=== PATIENT | female | born 1955 | race Caucasian/White ===

== ENCOUNTER 2020-06-15 10:13 | Emergency (ER) | payer MEDICARE, OTHER, SELFPAY ==
--- NOTE | 2020-06-15 10:37 | XR_ITS ---
WS: [id number] Exam: XR chest 1V portable [id number] Date/Time of Exam: 06/15/2020 10:37 AM Reason For Exam: syncope No priors. The lungs are clear and fully inflated. Normal cardiomediastinal structures. No pleural effusions. Ol d posterior left sixth rib fracture noted. Monitoring leads superimpose the chest. XR/XR chest 1V portable [id number] IMPRESSION: 1. No acute cardiopulmonary finding.
--- NOTE | 2020-06-15 10:38 | ECG_ITS ---
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
[2020-06-15 10:56] VITALS: BP 138/77; PULSE 76; RESP 16; TEMP 37.1; O2SAT 99; BMI 31.1
--- NOTE | 2020-06-15 10:57 | ED_ITS ---
Documented by User: JUAN DAVID Bell 06/15/20 12:30 HPI - Chest Pain General: Chief Complaint: Chest Pain Stated Complaint: Not Feeling Well. High Blood Pressure Time Seen by Provider: 06/15/20 10:57 History of Present Illness: HPI narrative: 64-year-old female patient presents to the emergency department with 7-day history of not feeling right. Suffers from scleroderma, Raynaud's, under the care of Dr. Zhao, supervisor [employer]. Recent medication change, cyclophosphamide, states made her feel funny and stopped the medication 7 days ago - states continued heart palpitations, anxiety - reports HR monitoring at home with HR 44-76; BP SBP 110-163; states BP not normally that high. She reports PCP, Dr Carter, [place], [place], suggested antidepressants, she reports did not wish to start medication until heart palpitations symptom is investigated. She denies CP/SOB, n/v/d. Associated symptoms: Reports palpitations; Deny abdominal pain, diaphoresis, dyspnea, fever(s), nausea or vomiting Risk Factors: Coronary artery disease risk factors: hypertension Thoracic aortic dissection risk factors: connective tissue disease (arotitis) (Scleroderma, Raynaud's disease) Review of Systems General: Reports: 10 or more systems reviewed and unremarkable except in HPI and below Const: Denies: fever(s), chills or diaphoresis Eyes: Denies: blurry vision or eye redness ENMT: Denies: throat pain, dental pain or disequilibrium Card: Reports: palpitations; Denies: chest pain, irregular heart rhythm, swelling of feet/ankles or dyspnea on exertion Resp: Denies: dyspnea, productive cough, non-productive cough or wheezing GI: Denies: abdominal pain, nausea or vomiting : Denies: difficulty voiding or dysuria Musc: Denies: back pain Skin/Breast: Denies: rash or pruritus Neuro: Denies: headache(s), weakness in extremities or behavioral changes Psych: Reports: anxiety and depression; Denies: visual hallucinations or auditory hallucinations Remberto/Lymph: Denies: easy bruising Physical Exam Const: COMMON NORMALS: no acute distress, patient oriented x3, healthy appearing and alert GENERAL APPEARANCE: cooperative, comfortable and well hydrated HENMT: COMMON NORMALS: normocephalic, Normal external nose present and moist oral mucous membranes HEAD & SCALP: normocephalic NOSE: Normal external nose present Eye: COMMON NORMALS: Equal, round and reactive pupils present and EOMs intact bilaterally GENERAL EYE: appearance normal, both eyes and all related structures PUPIL: Yes Equal, round and reactive pupils present Neck/C-Spine: COMMON NORMALS: full ROM and no lymphadenopathy GENERAL: Yes normal visual inspection and Yes trachea midline CERVICAL SPINE: Yes cervical ROM normal Lymph: LYMPHATIC: no lymphadenopathy noted Chest: COMMONS NORMALS: normal inspection of the chest Resp: COMMON NORMALS: normal respiratory effort and clear to auscultation bilaterally AUSCULTATION: clear to auscultation bilaterally Cardio: COMMON NORMALS: regular rhythm, S1 normal heart sound present, S2 normal heart sound present and Peripheral pulses 2+ throughout RHYTHM: regular rhythm HEART SOUNDS: S1 normal heart sound present and S2 normal heart sound present PERIPHERAL PULSES: Peripheral pulses 2+ throughout GI: COMMON NORMALS: Soft to palpation and non-tender INSPECTION: Yes normal to inspection AUSCULTATION: Yes normoactive bowel sounds PALPATION: Yes Soft to palpation : COMMON NORMALS: Yes no CVA tenderness BLADDER/KIDNEY EXAM: Yes no CVA tenderness Back/Pelvis: COMMON NORMALS: no CVA tenderness and thoracic and lumbar spine normal to inspection Extremity: COMMON NORMALS: normal to inspection and capillary refill normal Neuro: COMMON NORMALS: patient oriented x3 and no focal motor deficits SENSORIUM/ORIENTATION: Yes alert Psych: COMMON NORMALS: mental status grossly normal, Normal thought process present and cooperative ACTIVITY/MOTOR BEHAVIOR: Yes appropriate eye contact THOUGHT PROCESS: Normal thought process present Skin: COMMON NORMALS: no rashes or lesions noted and turgor normal GENERAL SKIN EXAM: no rashes or lesions noted and turgor normal Course ED course: 64-year-old female patient presents to the emergency department with not feeling well. Reports palpitations, questions new rheumatological medication as cause of palpitations and fatigue. Bigeminy noted to primary EKG reading, rate appeared is 44, bigeminy resolved with rate 70s, she denies chest pain, nausea vomiting. Transfer of care to Dr. Woodward, ED physician. Consultations: Consultation #1: Dr Michelle, cardiology, initial EKG reviewed, PVCs present/bigeminy with resolution, advised no acute process, advised magnesium with Chem-7 to rule out abnormal electrolytes. Time: 11:00 Vital Signs: Vital signs: Vital Signs Temperature 98.4 F 06/15/20 15:21 Pulse Rate 67 06/15/20 15:21 Respiratory Rate 18 06/15/20 15:21 Blood Pressure 121/68 06/15/20 15:21 Pulse Oximetry 96 06/15/20 15:21 MDM - Chest Pain Lab Data: Labs: Lab Results 06/15/20 06/15/20 06/15/20 Range/Units 10:40 11:10 11:10 WBC 4.7 (4.0-10.0) 10^3/ uL RBC 4.06 L (4.1-5.3) 10^6/u L Hgb 12.7 (11.5-15.3) g/dL Hct 40.7 (37.0-47.0) % MCV 100.2 H (81-99) fL MCH 31.3 (28.0-34.0) pg MCHC 31.2 (30.0-36.0) g/dL RDW 14.1 (12.1-15.1) % Plt Count 236 (130-400) 10^3/c mm MPV 10.3 (7.4-10.4) fL Neut % (Auto) 78.1 % Lymph % (Auto) 13.1 % Campbell % (Auto) 7.2 % Eos % (Auto) 0.2 % Baso % (Auto) 0.8 % Neut # (Auto) 3.69 (1.8-7.7) 10^3/u L Lymph # (Auto) 0.6 L (0.8-4.8) 10^3/u L Campbell # (Auto) 0.3 (0.2-0.9) 10^3/u L Eos # (Auto) 0.0 (0.0-0.8) 10^3/u L Baso # (Auto) 0.0 (0.0-0.1) 10^3/u L Nucleated RBC % (a uto) 0 % Nucleated RBCs # 0.0 /100WBC ESR 43 H (0-15) mm/hr D-Dimer (0-0.59) ug/mIFE U Sodium (136-145) mmol/L Potassium (3.5-5.1) mmol/L Chloride (98-107) mmol/L Carbon Dioxide (22-29) mmol/L Anion Gap (5-19) BUN (8-23) mg/dL Creatinine (0.5-0.9) mg/dL GFR Calculation (90-130) mL/min Glucose (65-115) mg/dL Calculated Osmolal ity (285-295) mOsm/k g Calcium (8.5-10.5) mg/dL Magnesium (1.7-2.3) mg/dL Total Bilirubin (0.15-1.2) mg/dL AST (0-32) U/L ALT (0-33) U/L Alkaline Phosphata se (35-105) IU/L Troponin T Baselin e (0-10) ng/L Troponin T 120 Min [place] (0-10) ng/L Delta Troponin T (0-10) ABS# C-Reactive Protein (0.0-4.9) mg/L Total Protein (6.6-8.7) g/dL Albumin (3.5-5.2) g/dL Globulin (1.3-4.6) g/dL Urine Color Straw (Yellow) Urine Appearance Clear (CLEAR) Urine pH 7 (5-7) Ur Specific Gravit y 1.005 (1.005-1.030) Urine Protein Neg (Negative) Urine Glucose (UA) Norm (Normal) Urine Ketones Negative (Negative) Urine Blood Neg (Negative) Urine Nitrate Negative (Negative) Urine Bilirubin Neg (Negative) Urine Urobilinogen Norm (Negative) mg/dL Ur Leukocyte Jing ase 1+ H (Negative) Urine RBC 0-4 H (0-2) /hpf Urine WBC 15-25 H (0-5) /hpf Ur Squamous Epith Cells 10-15 H (0-5) /hpf Amorphous Sediment Not Reportable Urine Bacteria 1+ H (NONE) /hpf 06/15/20 06/15/20 06/15/20 Range/Units 11:10 11:10 11:10 WBC (4.0-10.0) 10^3/ uL RBC (4.1-5.3) 10^6/u L Hgb (11.5-15.3) g/dL Hct (37.0-47.0) % MCV (81-99) fL MCH (28.0-34.0) pg MCHC (30.0-36.0) g/dL RDW (12.1-15.1) % Plt Count (130-400) 10^3/c mm MPV (7.4-10.4) fL Neut % (Auto) % Lymph % (Auto) % Campbell % (Auto) % Eos % (Auto) % Baso % (Auto) % Neut # (Auto) (1.8-7.7) 10^3/u L Lymph # (Auto) (0.8-4.8) 10^3/u L Campbell # (Auto) (0.2-0.9) 10^3/u L Eos # (Auto) (0.0-0.8) 10^3/u L Baso # (Auto) (0.0-0.1) 10^3/u L Nucleated RBC % (a uto) % Nucleated RBCs # /100WBC ESR (0-15) mm/hr D-Dimer 0.57 (0-0.59) ug/mIFE U Sodium 139 (136-145) mmol/L Potassium 4.2 (3.5-5.1) mmol/L Chloride 102 (98-107) mmol/L Carbon Dioxide 29 (22-29) mmol/L Anion Gap 12.2 (5-19) BUN 11 (8-23) mg/dL Creatinine 0.6 (0.5-0.9) mg/dL GFR Calculation 100.3 (90-130) mL/min Glucose 104 (65-115) mg/dL Calculated Osmolal ity 288 (285-295) mOsm/k g Calcium 9.5 (8.5-10.5) mg/dL Magnesium 2.1 (1.7-2.3) mg/dL Total Bilirubin 0.3 (0.15-1.2) mg/dL AST 23 (0-32) U/L ALT 14 (0-33) U/L Alkaline Phosphata se 68 (35-105) IU/L Troponin T Baselin e 9 (0-10) ng/L Troponin T 120 Min [place] (0-10) ng/L Delta Troponin T (0-10) ABS# C-Reactive Protein 1.5 (0.0-4.9) mg/L Total Protein 7.3 (6.6-8.7) g/dL Albumin 4.3 (3.5-5.2) g/dL Globulin 3.0 (1.3-4.6) g/dL Urine Color (Yellow) Urine Appearance (CLEAR) Urine pH (5-7) Ur Specific Gravit y (1.005-1.030) Urine Protein (Negative) Urine Glucose (UA) (Normal) Urine Ketones (Negative) Urine Blood (Negative) Urine Nitrate (Negative) Urine Bilirubin (Negative) Urine Urobilinogen (Negative) mg/dL Ur Leukocyte Jing ase (Negative) Urine RBC (0-2) /hpf Urine WBC (0-5) /hpf Ur Squamous Epith Cells (0-5) /hpf Amorphous Sediment Urine Bacteria (NONE) /hpf 06/15/20 Range/Units 13:04 WBC (4.0-10.0) 10^3/ uL RBC (4.1-5.3) 10^6/u L Hgb (11.5-15.3) g/dL Hct (37.0-47.0) % MCV (81-99) fL MCH (28.0-34.0) pg MCHC (30.0-36.0) g/dL RDW (12.1-15.1) % Plt Count (130-400) 10^3/c mm MPV (7.4-10.4) fL Neut % (Auto) % Lymph % (Auto) % Campbell % (Auto) % Eos % (Auto) % Baso % (Auto) % Neut # (Auto) (1.8-7.7) 10^3/u L Lymph # (Auto) (0.8-4.8) 10^3/u L Campbell # (Auto) (0.2-0.9) 10^3/u L Eos # (Auto) (0.0-0.8) 10^3/u L Baso # (Auto) (0.0-0.1) 10^3/u L Nucleated RBC % (a uto) % Nucleated RBCs # /100WBC ESR (0-15) mm/hr D-Dimer (0-0.59) ug/mIFE U Sodium (136-145) mmol/L Potassium (3.5-5.1) mmol/L Chloride (98-107) mmol/L Carbon Dioxide (22-29) mmol/L Anion Gap (5-19) BUN (8-23) mg/dL Creatinine (0.5-0.9) mg/dL GFR Calculation (90-130) mL/min Glucose (65-115) mg/dL Calculated Osmolal ity (285-295) mOsm/k g Calcium (8.5-10.5) mg/dL Magnesium (1.7-2.3) mg/dL Total Bilirubin (0.15-1.2) mg/dL AST (0-32) U/L ALT (0-33) U/L Alkaline Phosphata se (35-105) IU/L Troponin T Baselin e (0-10) ng/L Troponin T 120 Min [place] 8.84 (0-10) ng/L Delta Troponin T -0.16 L (0-10) ABS# C-Reactive Protein (0.0-4.9) mg/L Total Protein (6.6-8.7) g/dL Albumin (3.5-5.2) g/dL Globulin (1.3-4.6) g/dL Urine Color (Yellow) Urine Appearance (CLEAR) Urine pH (5-7) Ur Specific Gravit y (1.005-1.030) Urine Protein (Negative) Urine Glucose (UA) (Normal) Urine Ketones (Negative) Urine Blood (Negative) Urine Nitrate (Negative) Urine Bilirubin (Negative) Urine Urobilinogen (Negative) mg/dL Ur Leukocyte Jing ase (Negative) Urine RBC (0-2) /hpf Urine WBC (0-5) /hpf Ur Squamous Epith Cells (0-5) /hpf Amorphous Sediment Urine Bacteria (NONE) /hpf EKG Data^: EKG 1: EKG interpretation date: 06/15/20 EKG interpretation time: 10:51 Prior EKG tracings: not available for review Computer generated interpretation: Sinus rhythm with occasional PVCs, left atrial enlargement, borderline ECG Discharge Plan Discharge Patient Disposition: Home Clinical Impression: Heart palpitations Condition: Stable Prescriptions: Continued amlodipine 5 mg tablet 5 mg PO BID RF: 0 famotidine 20 mg Tablet 20 mg PO BID RF: 0 aspirin 81 mg Tablet,Chewable 81 mg PO DAILY RF: 0 bupropion HCl 150 mg tablet extended release 24 hr 150 mg PO DAILY RF: 0 cyclophosphamide 25 mg capsule 25 mg PO DAILY RF: 0 Discharge Orders: Discharge Order (Routine); Ordered 06/15/20 Ordered By: Halley Woodward Referrals: [facility] [Other] Discharge Diet: Usual diet Discharge Activity: Increase activity as tolerated Patient Instructions: Palpitations (ED) Activity Restrictions/Additional Instructions: Return for any new or worsening symptoms. Follow-up with your primary care provider within 3 days. You will be contacted to set up the Holter or event monitor so that we can monitor your heart rate to see if you need cardiology evaluation. Discharge Date/Time: 06/15/20 15:23 Sign Out Sign Out Data: Patient Sign Out occurred on 06/15/20 at 13:07. Patient's care was discussed, and care was transferred from to Halley Woodward MD, [facility] [place]. Coding Level of Care Code ED Picker/Puller for Chg Fwd Exam Comprehensive Documented by User: Halley Woodward MD, [facility] [place] 06/15/20 19:39 HPI - Chest Pain General: Chief Complaint: Chest Pain Stated Complaint: Not Feeling Well. High Blood Pressure Time Seen by Provider: 06/15/20 10:57 Course Reevaluation(s): Reevaluation #1: Discussed her lab and imaging findings with her. Negative for acute findings. I explained that her symptoms are most likely secondary to cyclophosphamide which she thought the same thing. Because of the abnormal EKG here she is advised to get a Holter or event monitor and she voiced understanding and is in agreement with the plan. Time: 14:41 Vital Signs: Vital signs: Vital Signs Temperature 98.4 F 06/15/20 15:21 Pulse Rate 67 06/15/20 15:21 Respiratory Rate 18 06/15/20 15:21 Blood Pressure 121/68 06/15/20 15:21 Pulse Oximetry 96 06/15/20 15:21 MDM - Chest Pain MDM Narrative: Medical decision making narrative: For the history and physical and examination see the notes by the midlevel provider. In summary this is a 64-year-old female patient with a history of scleroderma and Raynaud's who was started on cyclophosphamide and presents with complaints of palpitations and generalized weakness. 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 She will get a Holter/event and will f/u with her pcp. Medical Records: Attestation: I reviewed the patient's medical records. Lab Data: Attestation: I reviewed the patient's lab results. Labs: Lab Results 06/15/20 06/15/20 06/15/20 Range/Units 10:40 11:10 11:10 WBC 4.7 (4.0-10.0) 10^3/ uL RBC 4.06 L (4.1-5.3) 10^6/u L Hgb 12.7 (11.5-15.3) g/dL Hct 40.7 (37.0-47.0) % MCV 100.2 H (81-99) fL MCH 31.3 (28.0-34.0) pg MCHC 31.2 (30.0-36.0) g/dL RDW 14.1 (12.1-15.1) % Plt Count 236 (130-400) 10^3/c mm MPV 10.3 (7.4-10.4) fL Neut % (Auto) 78.1 % Lymph % (Auto) 13.1 % Campbell % (Auto) 7.2 % Eos % (Auto) 0.2 % Baso % (Auto) 0.8 % Neut # (Auto) 3.69 (1.8-7.7) 10^3/u L Lymph # (Auto) 0.6 L (0.8-4.8) 10^3/u L Campbell # (Auto) 0.3 (0.2-0.9) 10^3/u L Eos # (Auto) 0.0 (0.0-0.8) 10^3/u L Baso # (Auto) 0.0 (0.0-0.1) 10^3/u L Nucleated RBC % (a uto) 0 % Nucleated RBCs # 0.0 /100WBC ESR 43 H (0-15) mm/hr D-Dimer (0-0.59) ug/mIFE U Sodium (136-145) mmol/L Potassium (3.5-5.1) mmol/L Chloride (98-107) mmol/L Carbon Dioxide (22-29) mmol/L Anion Gap (5-19) BUN (8-23) mg/dL Creatinine (0.5-0.9) mg/dL GFR Calculation (90-130) mL/min Glucose (65-115) mg/dL Calculated Osmolal ity (285-295) mOsm/k g Calcium (8.5-10.5) mg/dL Magnesium (1.7-2.3) mg/dL Total Bilirubin (0.15-1.2) mg/dL AST (0-32) U/L ALT (0-33) U/L Alkaline Phosphata se (35-105) IU/L Troponin T Baselin e (0-10) ng/L Troponin T 120 Min [place] (0-10) ng/L Delta Troponin T (0-10) ABS# C-Reactive Protein (0.0-4.9) mg/L Total Protein (6.6-8.7) g/dL Albumin (3.5-5.2) g/dL Globulin (1.3-4.6) g/dL Urine Color Straw (Yellow) Urine Appearance Clear (CLEAR) Urine pH 7 (5-7) Ur Specific Gravit y 1.005 (1.005-1.030) Urine Protein Neg (Negative) Urine Glucose (UA) Norm (Normal) Urine Ketones Negative (Negative) Urine Blood Neg (Negative) Urine Nitrate Negative (Negative) Urine Bilirubin Neg (Negative) Urine Urobilinogen Norm (Negative) mg/dL Ur Leukocyte Jing ase 1+ H (Negative) Urine RBC 0-4 H (0-2) /hpf Urine WBC 15-25 H (0-5) /hpf Ur Squamous Epith Cells 10-15 H (0-5) /hpf Amorphous Sediment Not Reportable Urine Bacteria 1+ H (NONE) /hpf 06/15/20 06/15/20 06/15/20 Range/Units 11:10 11:10 11:10 WBC (4.0-10.0) 10^3/ uL RBC (4.1-5.3) 10^6/u L Hgb (11.5-15.3) g/dL Hct (37.0-47.0) % MCV (81-99) fL MCH (28.0-34.0) pg MCHC (30.0-36.0) g/dL RDW (12.1-15.1) % Plt Count (130-400) 10^3/c mm MPV (7.4-10.4) fL Neut % (Auto) % Lymph % (Auto) % Campbell % (Auto) % Eos % (Auto) % Baso % (Auto) % Neut # (Auto) (1.8-7.7) 10^3/u L Lymph # (Auto) (0.8-4.8) 10^3/u L Campbell # (Auto) (0.2-0.9) 10^3/u L Eos # (Auto) (0.0-0.8) 10^3/u L Baso # (Auto) (0.0-0.1) 10^3/u L Nucleated RBC % (a uto) % Nucleated RBCs # /100WBC ESR (0-15) mm/hr D-Dimer 0.57 (0-0.59) ug/mIFE U Sodium 139 (136-145) mmol/L Potassium 4.2 (3.5-5.1) mmol/L Chloride 102 (98-107) mmol/L Carbon Dioxide 29 (22-29) mmol/L Anion Gap 12.2 (5-19) BUN 11 (8-23) mg/dL Creatinine 0.6 (0.5-0.9) mg/dL GFR Calculation 100.3 (90-130) mL/min Glucose 104 (65-115) mg/dL Calculated Osmolal ity 288 (285-295) mOsm/k g Calcium 9.5 (8.5-10.5) mg/dL Magnesium 2.1 (1.7-2.3) mg/dL Total Bilirubin 0.3 (0.15-1.2) mg/dL AST 23 (0-32) U/L ALT 14 (0-33) U/L Alkaline Phosphata se 68 (35-105) IU/L Troponin T Baselin e 9 (0-10) ng/L Troponin T 120 Min [place] (0-10) ng/L Delta Troponin T (0-10) ABS# C-Reactive Protein 1.5 (0.0-4.9) mg/L Total Protein 7.3 (6.6-8.7) g/dL Albumin 4.3 (3.5-5.2) g/dL Globulin 3.0 (1.3-4.6) g/dL Urine Color (Yellow) Urine Appearance (CLEAR) Urine pH (5-7) Ur Specific Gravit y (1.005-1.030) Urine Protein (Negative) Urine Glucose (UA) (Normal) Urine Ketones (Negative) Urine Blood (Negative) Urine Nitrate (Negative) Urine Bilirubin (Negative) Urine Urobilinogen (Negative) mg/dL Ur Leukocyte Jing ase (Negative) Urine RBC (0-2) /hpf Urine WBC (0-5) /hpf Ur Squamous Epith Cells (0-5) /hpf Amorphous Sediment Urine Bacteria (NONE) /hpf 06/15/20 Range/Units 13:04 WBC (4.0-10.0) 10^3/ uL RBC (4.1-5.3) 10^6/u L Hgb (11.5-15.3) g/dL Hct (37.0-47.0) % MCV (81-99) fL MCH (28.0-34.0) pg MCHC (30.0-36.0) g/dL RDW (12.1-15.1) % Plt Count (130-400) 10^3/c mm MPV (7.4-10.4) fL Neut % (Auto) % Lymph % (Auto) % Campbell % (Auto) % Eos % (Auto) % Baso % (Auto) % Neut # (Auto) (1.8-7.7) 10^3/u L Lymph # (Auto) (0.8-4.8) 10^3/u L Campbell # (Auto) (0.2-0.9) 10^3/u L Eos # (Auto) (0.0-0.8) 10^3/u L Baso # (Auto) (0.0-0.1) 10^3/u L Nucleated RBC % (a uto) % Nucleated RBCs # /100WBC ESR (0-15) mm/hr D-Dimer (0-0.59) ug/mIFE U Sodium (136-145) mmol/L Potassium (3.5-5.1) mmol/L Chloride (98-107) mmol/L Carbon Dioxide (22-29) mmol/L Anion Gap (5-19) BUN (8-23) mg/dL Creatinine (0.5-0.9) mg/dL GFR Calculation (90-130) mL/min Glucose (65-115) mg/dL Calculated Osmolal ity (285-295) mOsm/k g Calcium (8.5-10.5) mg/dL Magnesium (1.7-2.3) mg/dL Total Bilirubin (0.15-1.2) mg/dL AST (0-32) U/L ALT (0-33) U/L Alkaline Phosphata se (35-105) IU/L Troponin T Baselin e (0-10) ng/L Troponin T 120 Min [place] 8.84 (0-10) ng/L Delta Troponin T -0.16 L (0-10) ABS# C-Reactive Protein (0.0-4.9) mg/L Total Protein (6.6-8.7) g/dL Albumin (3.5-5.2) g/dL Globulin (1.3-4.6) g/dL Urine Color (Yellow) Urine Appearance (CLEAR) Urine pH (5-7) Ur Specific Gravit y (1.005-1.030) Urine Protein (Negative) Urine Glucose (UA) (Normal) Urine Ketones (Negative) Urine Blood (Negative) Urine Nitrate (Negative) Urine Bilirubin (Negative) Urine Urobilinogen (Negative) mg/dL Ur Leukocyte Jing ase (Negative) Urine RBC (0-2) /hpf Urine WBC (0-5) /hpf Ur Squamous Epith Cells (0-5) /hpf Amorphous Sediment Urine Bacteria (NONE) /hpf Imaging Data^: CXR: Attestation: I personally reviewed and interpreted this imaging study as follows: Radiologist's impression: [address] [address] XRay Report Signed Patient: Antonietta Raymond #: [id number] : 4Acct#:[id number] Age/Sex: 64 / FADM Date: 06/15/20 Loc: ERRoom/Bed: Attending Dr: Ordering Provider/Ordering MD: Rashida Loja Date of Service: 06/15/20 Procedure(s): XR chest 1V portable [id number] Accession Number(s): [id number] Report Number: [id number] WS: [id number] Exam: XR chest 1V portable [id number] Date/Time of Exam: 06/15/2020 10:37 AM Reason For Exam: syncope No priors. The lungs are clear and fully inflated. Normal cardiomediastinal structures. No pleural effusions. Old posterior left sixth rib fracture noted. Monitoring leads superimpose the chest. XR/XR chest 1V portable [id number] IMPRESSION: 1. No acute cardiopulmonary finding. Dictated By:Kevin Connor DO Signed By:Sundar Ayoub Date/Time:06/15/201118 DD/ 111 EKG Data^: EKG 2: Attestation: I personally reviewed and interpreted this EKG as follows: EKG interpretation date: 06/15/20 EKG interpretation time: 12:50 Prior EKG tracings: available for review Interpretation: sinus rhythm. Heart rate 65 bpm. Moderate intraventricular conduction delay. No ST changes. Discharge Plan Discharge Patient Disposition: Home Clinical Impression: Heart palpitations Condition: Stable Prescriptions: Continued amlodipine 5 mg tablet 5 mg PO BID RF: 0 famotidine 20 mg Tablet 20 mg PO BID RF: 0 aspirin 81 mg Tablet,Chewable 81 mg PO DAILY RF: 0 bupropion HCl 150 mg tablet extended release 24 hr 150 mg PO DAILY RF: 0 cyclophosphamide 25 mg capsule 25 mg PO DAILY RF: 0 Discharge Orders: Discharge Order (Routine); Ordered 06/15/20 Ordered By: Halley Woodward Referrals: [facility] [Other] Discharge Diet: Usual diet Discharge Activity: Increase activity as tolerated Patient Instructions: Palpitations (ED) Activity Restrictions/Additional Instructions: Return for any new or worsening symptoms. Follow-up with your primary care provider within 3 days. You will be contacted to set up the Holter or event monitor so that we can monitor your heart rate to see if you need cardiology evaluation. Discharge Date/Time: 06/15/20 15:23 Sign Out Sign Out Data: Patient Sign Out occurred on 06/15/20 at 13:07. Patient's care was discussed, and care was transferred from to Halley Woodward MD, [facility] [place]. Coding Level of Care Code ED Picker/Puller for Chg Fwd Exam Comprehensive
[2020-06-15 11:04] VITALS: BP 138/77; PULSE 79; RESP 16; O2SAT 97
[2020-06-15 11:13] VITALS: BP 138/77; PULSE 81; RESP 16; O2SAT 98
[2020-06-15 11:30] LABS: Basophils % 0.8 %; Eosinophils % 0.2 %; Hematocrit 40.7 % (37.0-47.0); Hemoglobin 12.7 g/dL (11.5-15.3); Lymphocytes # 0.6 10^3/uL (0.8-4.8); Lymphocytes % 13.1 %; Mean Corpuscular HGB Conc 31.2 g/dL (30.0-36.0); Mean Corpuscular Hemoglobin 31.3 pg (28.0-34.0); Mean Corpuscular Volume 100.2 fL (81-99); Mean Platelet Volume 10.3 fL (7.4-10.4); Monocytes # 0.3 10^3/uL (0.2-0.9); Monocytes % 7.2 %; Neutrophils # 3.69 10^3/uL (1.8-7.7); Neutrophils % 78.1 %; Nucleated Red Blood Cells % 0 %; Platelet Count 236 10^3/cmm (130-400); Red Blood Count 4.06 10^6/uL (4.1-5.3); Red Cell Distribution Width 14.1 % (12.1-15.1); White Blood Count 4.7 10^3/uL (4.0-10.0)
[2020-06-15 11:35] LABS: Add Urine Microscopic? YES; Bilirubin Urine Neg (Negative); Blood Urine Neg (Negative); Glucose Urine UA Norm (Normal); Ketones Urine Negative (Negative); Leukocyte Esterase Urine 1+ (Negative); Nitrate Urine Negative (Negative); Protein Urine Neg (Negative); Specific Gravity, Urine 1.005 (1.005-1.030); Urine Appearance Clear (CLEAR); Urine Color Straw (Yellow); Urobilinogen Urine Norm (Negative); pH Urine 7 (5-7)
[2020-06-15 11:41] LABS: RBC Urine 0-4 /hpf (0-2); WBC Urine 15-25 /hpf (0-5)
[2020-06-15 11:42] LABS: Add Urine Culture? No; Bacteria Urine 1+ /hpf
--- NOTE | 2020-06-15 11:54 | PC.NURSE ---
No Acute distress, continue to monitor.
[2020-06-15 11:56] LABS: D Dimer 0.57 ug/mIFEU (0-0.59)
[2020-06-15 12:02] LABS: Troponin(5th) Baseline 9 ng/L (0-10)
[2020-06-15 12:03] LABS: Alanine Aminotransferase 14 U/L (0-33); Albumin Level 4.3 g/dL (3.5-5.2); Alkaline Phosphatase 68 IU/L (35-105); Anion Gap 12.2 (5-19); Aspartate Amino Transferase 23 U/L (0-32); Blood Urea Nitrogen 11 mg/dL (8-23); C Reactive Protein 1.5 mg/L (0.0-4.9); Calcium 9.5 mg/dL (8.5-10.5); Carbon Dioxide 29 mmol/L (22-29); Chloride 102 mmol/L (98-107); Glomerular Filtration Rate 100.3 mL/min (90-130); Glucose 104 mg/dL (65-115); Magnesium 2.1 mg/dL (1.7-2.3); Osmolality Calculated 288 mOsm/kg (285-295); Potassium 4.2 mmol/L (3.5-5.1); Sodium 139 mmol/L (136-145); Total Bilirubin 0.3 mg/dL (0.15-1.2); Total Protein 7.3 g/dL (6.6-8.7)
[2020-06-15 12:26] LABS: Erythrocyte Sedimentation Rate 43 mm/hr (0-15)
--- NOTE | 2020-06-15 12:38 | ECG_ITS ---
[facility] Test Date: 2020-06-15 Pat Name: Antonietta Raymond Department: Room: Gender: Female Foxer: : 1955 Requested By: Rashida Salas Order Number: [id number] Reading MD: Measurements Intervals [place] Rate: 65 P: 42 [place]: 202 QRS: 24 QRSD: 112 T: -5 QT: 378 QTc: 395 Interpretive Statements SINUS RHYTHM MODERATE INTRAVENTRICULAR CONDUCTION DELAY [110+ ms QRS DURATION] Compared to ECG 06/15/2020 10:51:18 Ventricular premature complex(es) no longer present [id number]
[2020-06-15 13:21] VITALS: BP 136/75; PULSE 73; RESP 20; O2SAT 94
[2020-06-15 13:40] LABS: Troponin 5 2HR 8.84 ng/L (0-10)
[2020-06-15 13:50] LABS: Troponin 5 2HR Delta -0.16 ABS# (0-10)
--- NOTE | 2020-06-15 13:58 | PC.NURSE ---
No Actue distress noted. Continue to monitor.
--- NOTE | 2020-06-15 14:51 | DCPLANNER ---
sports team manager was asked to schedule an out patient 21 day event monitor. sports team manager called [facility], spoke with Loreto to ask if patient could be seen today. sports team manager was told that there was no appointments available for today. sports team manager was told that the event monitor could be mailed to patient. sports team manager informed patient and ED physician that [facility] will mail patient the event monitor. sports team manager faxed order for event monitor to [facility].
[2020-06-15 15:21] VITALS: BP 121/68; PULSE 67; RESP 18; TEMP 36.9; O2SAT 96
--- NOTE | 2020-06-21 11:38 | DCPLANNER ---
Patient had a follow up appointment scheduled for 06.17.20 with [facility] for a monitor - patient did attend appointment.
== END 2020-06-15 15:23 | disposition home or self-care (01) ==
PROVIDERS: Nurse Practitioner Family; Emergency Provider Family Medicine
DX: R00.2 Palpitations (principal); Z79.82 Long term (current) use of aspirin
CPT/HCPCS: 12345; 71045; 80053; 81001; 83735; 84484; 85025; 85378; 85651; 86140; 93005; 99283

== ENCOUNTER → 2020-07-18 13:13 | Outpatient (BNVA) | payer MEDICARE, OTHER, SELFPAY | PROVIDERS: Visit Provider Internal Medicine | DX: M34.9 Systemic sclerosis, unspecified (principal); I73.00 Raynaud's syndrome without gangrene; Z79.899 Other long term (current) drug therapy | CPT/HCPCS: 99214 ==

== ENCOUNTER → 2020-09-12 12:56 | Outpatient (BNVA) | payer MEDICARE, OTHER, SELFPAY | PROVIDERS: PCP Family Medicine; Visit Provider Internal Medicine | DX: M34.9 Systemic sclerosis, unspecified (principal); I73.00 Raynaud's syndrome without gangrene; Z79.899 Other long term (current) drug therapy | CPT/HCPCS: 99213 ==

== ENCOUNTER 2021-01-11 16:45 | Outpatient (CLI) | payer MEDICARE, OTHER, SELFPAY ==
[2021-01-11 17:06] LABS: Basophils % 0.1 %; Eosinophils # 0.1 10^3/uL (0.0-0.8); Eosinophils % 0.9 %; Hemoglobin 13.1 g/dL (11.5-15.3); Lymphocytes # 1.2 10^3/uL (0.8-4.8); Lymphocytes % 14.7 %; Mean Corpuscular Hemoglobin 30.8 pg (28.0-34.0); Mean Corpuscular Volume 96.5 fL (81-99); Mean Platelet Volume 10.4 fL (7.4-10.4); Monocytes # 0.8 10^3/uL (0.2-0.9); Monocytes % 9.1 %; Neutrophils # 6.18 10^3/uL (1.8-7.7); Neutrophils % 75.1 %; Nucleated Red Blood Cells % 0 %; Platelet Count 246 10^3/cmm (130-400); Red Blood Count 4.25 10^6/uL (4.1-5.3); Red Cell Distribution Width 13.3 % (12.1-15.1); White Blood Count 8.2 10^3/uL (4.0-10.0)
[2021-01-11 17:28] LABS: Alanine Aminotransferase 8 U/L (0-33); Albumin Level 4.3 g/dL (3.5-5.2); Alkaline Phosphatase 72 IU/L (35-105); Anion Gap 12.5 (5-19); Aspartate Amino Transferase 18 U/L (0-32); Blood Urea Nitrogen 18 mg/dL (8-23); C Reactive Protein 3.5 mg/L (0.0-4.9); Calcium 9.3 mg/dL (8.5-10.5); Carbon Dioxide 31 mmol/L (22-29); Chloride 101 mmol/L (98-107); Globulin 3.6 g/dL (1.3-4.6); Glomerular Filtration Rate 71.8 mL/min (90-130); Glucose 79 mg/dL (65-115); Osmolality Calculated 291 mOsm/kg (285-295); Potassium 4.5 mmol/L (3.5-5.1); Sodium 140 mmol/L (136-145); Total Bilirubin 0.2 mg/dL (0.15-1.2); Total Protein 7.9 g/dL (6.6-8.7)
[2021-01-11 18:07] LABS: Erythrocyte Sedimentation Rate 46 mm/hr (0-15)
== END 2021-01-11 16:46 | disposition home or self-care (01) ==
PROVIDERS: PCP Family Medicine; Visit Provider Internal Medicine
DX: I73.00 Raynaud's syndrome without gangrene (principal); M34.9 Systemic sclerosis, unspecified; Z79.899 Other long term (current) drug therapy
CPT/HCPCS: 36415; 80053; 85025; 85651; 86140

== ENCOUNTER → 2021-01-12 12:56 | Outpatient (BNVA) | payer MEDICARE, OTHER, SELFPAY | PROVIDERS: PCP Family Medicine; Visit Provider Internal Medicine | DX: M34.9 Systemic sclerosis, unspecified (principal); I73.00 Raynaud's syndrome without gangrene; Z79.899 Other long term (current) drug therapy | CPT/HCPCS: 81001; 87077; 87086; 87186; 99213; 99214 ==

== ENCOUNTER → 2021-04-27 12:36 | Outpatient (BNVA) | payer MEDICARE, OTHER, SELFPAY | PROVIDERS: PCP Family Medicine; Visit Provider Internal Medicine | DX: M34.9 Systemic sclerosis, unspecified (principal); I73.00 Raynaud's syndrome without gangrene; Z79.899 Other long term (current) drug therapy; R21 Rash and other nonspecific skin eruption | CPT/HCPCS: 99214 ==

== ENCOUNTER → 2021-08-23 13:18 | Outpatient (BNVA) | payer MEDICARE, OTHER, SELFPAY | PROVIDERS: PCP Family Medicine; Visit Provider Internal Medicine | DX: M34.9 Systemic sclerosis, unspecified (principal); I73.00 Raynaud's syndrome without gangrene; Z79.899 Other long term (current) drug therapy; R79.89 Other specified abnormal findings of blood chemistry | CPT/HCPCS: 99214 ==

== ENCOUNTER → 2021-12-20 10:16 | Outpatient (BNVA) | payer MEDICARE, OTHER, SELFPAY | PROVIDERS: PCP Family Medicine; Visit Provider Internal Medicine | DX: M34.9 Systemic sclerosis, unspecified (principal); I73.00 Raynaud's syndrome without gangrene; R21 Rash and other nonspecific skin eruption; Z79.899 Other long term (current) drug therapy; Z85.828 Personal history of other malignant neoplasm of skin | CPT/HCPCS: 36415; 81001; 99214 ==

== ENCOUNTER → 2022-03-28 09:07 | Outpatient (BNVA) | payer MEDICARE, OTHER, SELFPAY | PROVIDERS: PCP Family Medicine; Visit Provider Internal Medicine | DX: M34.9 Systemic sclerosis, unspecified (principal); R21 Rash and other nonspecific skin eruption; I73.00 Raynaud's syndrome without gangrene | CPT/HCPCS: 99213; 99214 ==

== ENCOUNTER → 2022-09-10 10:31 | Outpatient (BNVA) | payer MEDICARE, OTHER, SELFPAY | PROVIDERS: PCP Family Medicine; Visit Provider Internal Medicine | DX: M34.9 Systemic sclerosis, unspecified (principal); I73.00 Raynaud's syndrome without gangrene; R21 Rash and other nonspecific skin eruption | CPT/HCPCS: 36415; 80053; 81003; 85025; 85651; 86140; 99213 ==

== ENCOUNTER → 2023-01-01 15:21 | Outpatient (BNVA) | payer MEDICARE, OTHER, SELFPAY | PROVIDERS: PCP Family Medicine; Visit Provider Nurse Practitioner Family | DX: L57.0 Actinic keratosis (principal); Z85.828 Personal history of other malignant neoplasm of skin; M34.83 Systemic sclerosis with polyneuropathy; L57.8 Other skin changes due to chronic exposure to nonionizing radiation; L81.4 Other melanin hyperpigmentation; D22.5 Melanocytic nevi of trunk; Z71.89 Other specified counseling | CPT/HCPCS: 17000; 17003; 99213 ==

== ENCOUNTER 2023-01-22 10:30 | Outpatient (CLI) | payer MEDICARE, OTHER, SELFPAY ==
--- NOTE | 2023-01-22 11:15 | USCV_ITS ---
Antonietta Raymond Age: 67 Gender: F : 1955 Exam Date: 01/22/2023 11:01 Ordering Phys: Asya Mercado MD Technologist: [place] [facility] [place]: BP: 130 / 70 HR: 58 Rhythm: Sinus Technical Quality: Adequate MEASUREMENTS (Male / Female) Normal Values 2D ECHO LV Diastolic Diameter PLAX 3.3 cm 4.2 - 5.9 / 3.9 - 5.3 cm LV Systolic Diameter PLAX 2.0 cm IVS Diastolic Thickness 1.2 cm 0.6 - 1.0 / 0.6 - 0.9 cm IVS Systolic Thickness 2.3 cm LVPW Diastolic Thickness 1.9 cm 0.6 - 1.0 / 0.6 - 0.9 cm LVPW Systolic Thickness 2.5 cm LVOT Diameter 2.1 cm LV Ejection Fraction 2D Teich 68.9 % LV Ejection Fraction MOD 2C 74.3 % LV Ejection Fraction 2C AL 74.9 % LA Diameter 3.9 cm Aorta at Sinotubular Diameter 2.9 cm IVC Diameter 1.5 cm M-MODE Aortic Annulus Diameter 3.0 cm LA Ao Ratio MM 1.5 MV E Point Septal Separation 0.4 cm DOPPLER AV Peak Velocity 151.0 cm/s LVOT Peak Velocity 89.0 cm/s AV Area Cont Eq vti 1.7 cm squared AV Area Cont Eq pk 2.1 cm squared MV Area PHT 4.2 cm squared Mitral E to A Ratio 0.9 MV E' Velocity 46.0 cm/s Mitral E to MV E' Ratio 8.8 Mitral E to LV E' Lateral Ratio 9.6 Mitral E to LV E' Septal Ratio 8.2 TR Peak Velocity 312.8 cm/s TR Peak Gradient 39.1 mmHg TR Mean Velocity 254.0 cm/s TR Mean Gradient 27.2 mmHg TR Velocity Time Integral 99.5 cm TV Peak E Velocity 80.0 cm/s Right Atrial Pressure 3.0 mmHg Pulmonary Artery Systolic Pressu 42.1 mmHg PV Peak Velocity 99.0 cm/s FINDINGS Left Ventricle Left ventricle is normal in size. LV systolic function is normal with EF of 60 to 65%. No regional wall motion normalities are seen. Right Ventricle Normal in size and function Right Atrium Normal in size Left Atrium Normal in size Mitral Valve Moderate mitral annular calcification. Mild mitral regurgitation. Aortic Valve Structurally normal aortic valve. No significant stenosis or regurgitation. Tricuspid Valve Mild tricuspid regurgitation. RVSP is 40 to 45 mmHg. This is consistent with a mild pulmonary hypertension. Pulmonic Valve Mild pulmonic regurgitation. Pericardium Normal Aorta Normal in size IVC Appears to be normal CONCLUSIONS LV systolic function is normal with EF of 60 to 65%. Mild mitral regurgitation Mild tricuspid regurgitation Mild pulmonary hypertension Mild pulmonic regurgitation Compared to prior echocardiogram from 2016, no significant changes are seen Fer Louise MD (Electronically Signed) Final Date: 26 January 2023 14:43 S
== END 2023-01-22 10:31 | disposition home or self-care (01) ==
LOC: RAD 10:34
PROVIDERS: PCP Family Medicine; Visit Provider Internal Medicine
DX: I73.00 Raynaud's syndrome without gangrene (principal); M34.9 Systemic sclerosis, unspecified; R21 Rash and other nonspecific skin eruption; I08.1 Rheumatic disorders of both mitral and tricuspid valves; I27.20 Pulmonary hypertension, unspecified
CPT/HCPCS: 93306

== ENCOUNTER → 2023-01-24 08:49 | Outpatient (BNVA) | payer MEDICARE, OTHER, SELFPAY | PROVIDERS: PCP Family Medicine; Visit Provider Internal Medicine | DX: M34.9 Systemic sclerosis, unspecified (principal); Z79.899 Other long term (current) drug therapy; I73.00 Raynaud's syndrome without gangrene | CPT/HCPCS: 36415; 80053; 81001; 85025; 85651; 86140; 99214 ==

== ENCOUNTER → 2023-04-18 14:14 | Outpatient (BNVA) | payer MEDICARE, OTHER, SELFPAY | PROVIDERS: PCP Family Medicine; Visit Provider Nurse Practitioner Family | DX: L57.0 Actinic keratosis (principal); Z85.828 Personal history of other malignant neoplasm of skin; M34.83 Systemic sclerosis with polyneuropathy; L57.8 Other skin changes due to chronic exposure to nonionizing radiation; L81.4 Other melanin hyperpigmentation; D22.5 Melanocytic nevi of trunk; Z71.89 Other specified counseling | CPT/HCPCS: 17000; 17003; 99214 ==

== ENCOUNTER → 2023-07-19 08:41 | Outpatient (BNVA) | payer MEDICARE, OTHER, SELFPAY | PROVIDERS: PCP Family Medicine; Visit Provider Nurse Practitioner Family | DX: M34.83 Systemic sclerosis with polyneuropathy (principal); L57.8 Other skin changes due to chronic exposure to nonionizing radiation; L81.4 Other melanin hyperpigmentation; L82.1 Other seborrheic keratosis; Z08 Encounter for follow-up examination after completed treatment for malignant neoplasm; Z85.828 Personal history of other malignant neoplasm of skin; L57.0 Actinic keratosis | CPT/HCPCS: 17000; 99213 ==

== ENCOUNTER → 2023-07-23 10:10 | Outpatient (BNVA) | payer MEDICARE, OTHER, SELFPAY | PROVIDERS: PCP Family Medicine; Visit Provider Internal Medicine | DX: M34.9 Systemic sclerosis, unspecified (principal); R21 Rash and other nonspecific skin eruption; I73.00 Raynaud's syndrome without gangrene; E78.5 Hyperlipidemia, unspecified | CPT/HCPCS: 36415; 80053; 80061; 81001; 85025; 85651; 86140; 86160; 99214 ==

== ENCOUNTER → 2023-10-30 11:54 | Outpatient (BNVA) | payer MEDICARE, SELFPAY | PROVIDERS: PCP Family Medicine; Visit Provider Internal Medicine Rheumatology | DX: M34.9 Systemic sclerosis, unspecified (principal); Z79.899 Other long term (current) drug therapy; I73.00 Raynaud's syndrome without gangrene; M79.642 Pain in left hand | CPT/HCPCS: 36415; 73130; 80076; 82565; 85025; 86140; 99214 ==

== ENCOUNTER → 2024-02-12 10:15 | Outpatient (BNVA) | payer MEDICARE, SELFPAY | PROVIDERS: PCP Family Medicine; Visit Provider Internal Medicine Rheumatology | DX: M34.9 Systemic sclerosis, unspecified (principal); I73.00 Raynaud's syndrome without gangrene; E78.5 Hyperlipidemia, unspecified; K13.79 Other lesions of oral mucosa; Z79.899 Other long term (current) drug therapy | CPT/HCPCS: 36415; 80076; 82565; 85025; 85651; 86140; 86480; 86704; 86803; 87340; 99214 ==

== ENCOUNTER 2024-02-25 08:18 | Outpatient (CLI) | payer MEDICARE, SELFPAY ==
--- NOTE | 2024-02-25 08:30 | USCV_ITS ---
Antonietta Raymond Age: 68 Gender: F : 1955 Exam Date: 02/25/2024 08:36 Ordering Phys: Fady Vidal MD Technologist: CT Exam Location: [facility] [place] Indication: sclerderma BP: 130 / 85 HR: 62 Rhythm: Sinus Technical Quality: Adequate MEASUREMENTS (Male / Female) Normal Values 2D ECHO LVOT Diameter 2.2 cm LV Ejection Fraction MOD 4C 71.1 % LV Ejection Fraction MOD 2C 71.5 % LV Ejection Fraction 2C AL 72.7 % LA Diameter 3.2 cm RA Systolic Volume 4C AL 32.7 ml RA Systolic Volume 4C MOD 31.8 ml LA Sys Volume AL 60.2 cm cubed LA Sys Volume Index AL 31.1 cm cubed/m squared Aorta at Sinotubular Diameter 2.7 cm IVC Diameter 1.7 cm M-MODE LA Ao Ratio MM 1.2 AV Cusp Separation MM 1.9 cm DOPPLER AV Peak Velocity 146.0 cm/s LVOT Peak Velocity 94.0 cm/s AV Area Cont Eq vti 3.0 cm squared AV Area Cont Eq pk 2.4 cm squared MV Peak Velocity 332.8 cm/s MV Area PHT 3.7 cm squared Mitral E to A Ratio 1.1 TR Peak Velocity 215.0 cm/s TR Peak Gradient 18.5 mmHg TV Peak E Velocity 77.0 cm/s Right Atrial Pressure 3.0 mmHg Pulmonary Artery Systolic Pressu 21.5 mmHg PV Peak Velocity 97.5 cm/s FINDINGS Left Ventricle Left Ventricle is normal in size. LV systolic function is normal with EF of 60 to 65%. No regional wall motion abnormalities are seen. Right Ventricle Normal in size and function. Right Atrium Normal size Left Atrium Dilated Mitral Valve Moderate mitral annular calcification. Mild mitral regurgitation. Aortic Valve Aortic valve is thickened. No significant stenosis or regurgitation. Tricuspid Valve Trace tricuspid regurgitation. Insufficient TR jet to calculate RVSP Pulmonic Valve Trace pulmonic regurgitation. Pericardium Normal Aorta Normal in size IVC Appears to be normal CONCLUSIONS LV systolic function is normal with EF of 60-65% Left atrial dilation Mild mitral regurgitation Trace tricuspid regurgitation Trace pulmonic regurgitation Compared to prior echocardiogram from 2022, no significant changes are seen Fer Louise MD (Electronically Signed) Final Date: 12 March 2024 07:45 S
== END 2024-02-25 08:19 | disposition home or self-care (01) ==
LOC: RAD 08:21
PROVIDERS: PCP Family Medicine; Visit Provider Internal Medicine Rheumatology
DX: M34.9 Systemic sclerosis, unspecified (principal); I08.1 Rheumatic disorders of both mitral and tricuspid valves
CPT/HCPCS: 93306

== ENCOUNTER → 2024-05-06 11:08 | Outpatient (BNVA) | payer MEDICARE, SELFPAY | PROVIDERS: PCP Family Medicine; Visit Provider Internal Medicine Rheumatology | DX: M34.9 Systemic sclerosis, unspecified (principal); I73.00 Raynaud's syndrome without gangrene; E78.5 Hyperlipidemia, unspecified; K13.79 Other lesions of oral mucosa; Q18.5 Microstomia | CPT/HCPCS: 99214 ==

== ENCOUNTER → 2024-08-31 13:54 | Outpatient (BNVA) | payer MEDICARE, SELFPAY | PROVIDERS: PCP Family Medicine; Visit Provider Internal Medicine Rheumatology | DX: M34.9 Systemic sclerosis, unspecified (principal); I73.00 Raynaud's syndrome without gangrene; E78.5 Hyperlipidemia, unspecified; K13.79 Other lesions of oral mucosa; N28.0 Ischemia and infarction of kidney | CPT/HCPCS: 99215 ==

== ENCOUNTER → 2024-11-24 13:51 | Outpatient (BNVA) | payer MEDICARE, SELFPAY | PROVIDERS: PCP Family Medicine; Visit Provider Internal Medicine Rheumatology | DX: M34.9 Systemic sclerosis, unspecified (principal); I73.00 Raynaud's syndrome without gangrene; E78.5 Hyperlipidemia, unspecified; L94.3 Sclerodactyly; K13.79 Other lesions of oral mucosa; N28.0 Ischemia and infarction of kidney | CPT/HCPCS: 99214 ==